=== PATIENT | male | born 1955 | race Two or more races ===

== ENCOUNTER → 2020-05-08 | Outpatient (REF) | payer BC ==
[~2020-05-08] MED LIST: CIPR-249 PO; EX-L15TA PO; FLAG500T PO
[2020-05-08 18:18] LABS: APPEARANCE, URINE CLEAR (CLEAR); BACTERIA, URINE AUTO NEGATIVE (NEGATIVE); BILIRUBIN, URINE AUTO NEGATIVE (NEGATIVE); BLOOD, URINE BLOOD 2+ (NEGATIVE); COLOR, URINE YELLOW (YELLOW); GLUCOSE, URINE (UA) AUTO NEGATIVE (NEGATIVE); KETONE, URINE AUTO NEGATIVE (NEGATIVE); LEUKOCYTE ESTERASE, URINE AUTO NEGATIVE (NEGATIVE); MUCUS, URINE SMALL (NEGATIVE); NITRITE, URINE AUTO NEGATIVE (NEGATIVE); PROTEIN, URINE AUTO 1+ mg/dL (NEGATIVE); RBC, URINE AUTO 44 /HPF (0-3); SQUAMOUS EPITHELIAL CELL UR AU 0 /HPF (0-6); UROBILINOGEN, URINE AUTO 0.2 mg/dL (0.0-2.0); WBC, URINE AUTO 6 /HPF (0-3)
== END ==
LOC: M SMT 16:52
PROVIDERS: ATTEND Nurse Practitioner Women's Health
DX: R31.0 Gross hematuria (principal)

== ENCOUNTER → 2020-05-22 | Outpatient (CLI) | payer BC ==
[~2020-05-22] MED LIST changes: +ISOVUE-370 76% 100ML VIAL As Ordered ONE
--- NOTE | 2020-05-22 10:56 | REP ---
INDICATION: GROSS HEMATURIA. COMPARISON: 06/21/2017 TECHNIQUE: Axial precontrast, contrast-enhanced and delayed images from the lung bases to the pubic symphysis using 100 cc Isovue 370 intravenous contrast material. Coronal and sagittal reformations obtained along with recreated CT urogram. This CT examination was performed using the following dose reduction techniques: Automated exposure control, adjustment of mA and/or kv according to the patient's size, and the use of iterative reconstruction technique. FINDINGS: There is a 3.5 cm enhancing mass along the left lateral bladder wall. No adjacent inflammatory stranding or pelvic adenopathy is appreciated. Kidneys demonstrate mild chronic symmetric perinephric stranding without hydroureteronephrosis, nephroureterolithiasis, cystic or mass lesion. Liver, spleen, pancreas, and bilateral adrenal glands are normal. Evidence for prior cholecystectomy along with small fat containing periumbilical hernia and adjacent granulation tissue likely related to prior laparoscopic procedure. The enteric system including stomach, small, and residual large bowel appears normal. No evidence for obstruction or acute inflammatory process. Normal terminal ileum and appendix are identified in the right lower quadrant. Evidence for prior partial sigmoid resection. Pelvis demonstrates bladder mass as described above along with relatively age-appropriate prostate/seminal vesicles. No ascites. No free air. No intraperitoneal or retroperitoneal adenopathy. Abdominal aorta and vasculature appear normal. Musculoskeletal structures are intact and without acute osseous abnormality. Incidental calcified granuloma at the right lung base again noted. IMPRESSION: 1. 3.5 cm enhancing bladder mass requires further investigation and urologic consultation. Normal appearance of the bilateral kidneys and ureters. No pelvic inflammatory stranding, pelvic or retroperitoneal adenopathy appreciated. <Electronically signed by Gilles Feldman > 05/22/20 [id number]
== END ==
LOC: M RAD 09:39
PROVIDERS: ATTEND Nurse Practitioner Women's Health
DX: R31.0 Gross hematuria (principal)
CPT/HCPCS: 74178; Q9967

== ENCOUNTER → 2020-06-07 | Outpatient (CLI) | payer BC ==
[~2020-06-07] MED LIST changes: +AMLO2.5T3; +BYST2.5T2; -ISOVUE-370 76% 100ML VIAL As Ordered ONE
== END ==
LOC: M LABSMTC 11:07
PROVIDERS: ATTEND Anesthesiology
DX: Z01.812 Encounter for preprocedural laboratory examination (principal)

== ENCOUNTER 2020-06-12 10:47 | Day surgery (SDC) | payer BC ==
[~2020-06-12] VITALS: Ht 180.3 cm; Wt 136.5 kg
[~2020-06-12 10:47] MED LIST changes: +ACETAMINOPHEN 1000MG 100ML IV BTL (OFIRMEV) (J0131 PER 10MG) As Ordered ONE; -AMLO2.5T3; +AMLO2.5T3 PO; +LIDOCAINE 2% 100MG/5ML SDV (FOR ANES.) As Ordered ONE; +LR 1,000 ML IV SCH; +MIDAZOLAM INJ 2MG/2ML VIAL (J2250 PER 1MG) As Ordered ONE; +ONDANSETRON 4MG/2ML VIAL As Ordered ONE; +ROCURONIUM BROMIDE 50 MG/5 ML VIAL As Ordered ONE; +SUGAMMADEX SODIUM 500 MG/5 ML VIAL (BRIDION) As Ordered ONE; +ceFAZolin SOD 2 GM in IV 1 EA IV ONE; +dexameTHASONE 4 MG/ML 1ML VIAL (J1100 PER 1MG) As Ordered ONE; +fentaNYL 100 MCG/2 ML INJECTION (J3010) As Ordered ONE; +propofoL 200 MG/20 ML VIAL As Ordered ONE
[2020-06-12] MEDS ORDERED: KETOROLAC 60MG 2ML VIAL As Ordered ONE (12:56)
[2020-06-12] MEDS ORDERED: fentaNYL 100 MCG/2 ML INJECTION (J3010) As Ordered ONE (13:39)
[2020-06-12] MEDS ORDERED: LABETALOL 100MG/20ML VIAL As Ordered ONE (13:44)
[2020-06-12] MEDS ORDERED: hydrALAZINE 20MG/ML 1ML VIAL (J0360 PER 20MG) As Ordered ONE (14:03)
[2020-06-12] MEDS ORDERED: ACETAMINOPHEN TAB 650MG DOSE (2X325MG) PO PRN (14:45)
[2020-06-12] MEDS ORDERED: LR 1,000 ML IV SCH (14:45)
[2020-06-12] MEDS ORDERED: HYDROMORPHONE HCL 0.5 MG/ 0.5 ML SYRINGE (J1170 PER 1) IV PRN (14:45)
[2020-06-12] MEDS ORDERED: ONDANSETRON 4MG/2ML VIAL IV PRN (14:45)
[2020-06-12] MEDS ORDERED: fentaNYL 100 MCG/2 ML INJECTION (J3010) IV PRN (14:45)
[2020-06-12] MEDS ORDERED: oxyCODONE 5MG TAB PO PRN (14:45)
[2020-06-12 15:00] VITALS: BP 164/81
[2020-06-12] MEDS ORDERED: oxyBUTYnin 5 MG TAB PO ONE (16:10)
--- NOTE | 2020-06-12 21:28 | RO ---
OPERATIVE NOTE DATE OF OPERATION: 06/12/2020 PREOPERATIVE DIAGNOSIS: Bladder tumor. POSTOPERATIVE DIAGNOSIS: Bladder tumor. PROCEDURE: Cystoscopy, transurethral resection of bladder tumor (greater than 5 cm), examination under anesthesia. SURGEON: Asim Angel M.D. CAR PRE COOLER: None. ANESTHESIA: General. OPERATIVE INDICATION: This 64-year-old male was found to have a very large bladder tumor in the upper posterior lateral wall on recent cystoscopy. He was brought to the operating room today for treatment. DESCRIPTION OF PROCEDURE: The patient was brought to the operating room and general anesthesia induced. Prophylactic antibiotics were infused. He was placed in the dorsal lithotomy position and then a bimanual digital rectal examination under anesthesia was performed. Of note, he had a very small prostate without nodules. There were no palpable bladder masses. The bladder was freely mobile. At this point, the patient was prepped and draped in the usual sterile fashion. At this point, a resectoscope was inserted into the urethral meatus and advanced into the bladder using the visual obturator. The bladder was thoroughly examined. Of note, the only abnormality seen was an approximately 5.5 cm tumor on the posterior wall close to the dome. Both ureteral orifices were orthotopic and efflux clear urine. At this point, I utilized a Bipolar Loop to resect the tumor completely. The top of the tumor was resected and the specimen was sent as a bladder tumor. I then resected the base of the tumor and sent it off as a resection of bladder tumor base. All the specimens were removed from the bladder. I then cauterized the base of the resection until there was excellent hemostasis. Once satisfied with hemostasis, the resectoscope was removed and an 18 [place] Childers catheter was inserted into the bladder. The balloon was then filled with sterile water and then the catheter was connected to gravity drainage. This marked the conclusion of the procedure. The patient was taken from the dorsal lithotomy position, awaken from anesthesia and transferred to the recovery room in stable condition. ESTIMATED BLOOD LOSS: 15 ml COMPLICATIONS: None. SPECIMENS: Bladder tumor, resection of bladder tumor base. PLAN: The patient will follow up in the urology clinic in approximately one week for catheter removal and to discuss pathology results. SAMIRA
== END 2020-06-12 16:45 | disposition home or self-care (01) ==
LOC: M SDC 10:47
PROVIDERS: ATTEND Urology
DX: C67.4 Malignant neoplasm of posterior wall of bladder (principal); I10 Essential (primary) hypertension; M19.90 Unspecified osteoarthritis, unspecified site; R31.9 Hematuria, unspecified; R35.0 Frequency of micturition; Z87.891 Personal history of nicotine dependence; Z91.048 Other nonmedicinal substance allergy status; Z79.899 Other long term (current) drug therapy; Z85.038 Personal history of other malignant neoplasm of large intestine
CPT/HCPCS: 52240; 88305; 88341; 88342; C1769; J0131; J0360; J0690; J1100; J1885; J2250; J2405; J3010

== ENCOUNTER → 2021-01-19 | Outpatient (REF) | payer BC, MEDICARE ==
[~2021-01-19] MED LIST changes: -ACETAMINOPHEN 1000MG 100ML IV BTL (OFIRMEV) (J0131 PER 10MG) As Ordered ONE; -LIDOCAINE 2% 100MG/5ML SDV (FOR ANES.) As Ordered ONE; -LR 1,000 ML IV SCH; -MIDAZOLAM INJ 2MG/2ML VIAL (J2250 PER 1MG) As Ordered ONE; -ONDANSETRON 4MG/2ML VIAL As Ordered ONE; -ROCURONIUM BROMIDE 50 MG/5 ML VIAL As Ordered ONE; -SUGAMMADEX SODIUM 500 MG/5 ML VIAL (BRIDION) As Ordered ONE; -ceFAZolin SOD 2 GM in IV 1 EA IV ONE; -dexameTHASONE 4 MG/ML 1ML VIAL (J1100 PER 1MG) As Ordered ONE; -fentaNYL 100 MCG/2 ML INJECTION (J3010) As Ordered ONE; -propofoL 200 MG/20 ML VIAL As Ordered ONE
== END ==
LOC: M SMT 19:14
PROVIDERS: ATTEND Urology
DX: C67.9 Malignant neoplasm of bladder, unspecified (principal)

== ENCOUNTER → 2021-05-04 | Outpatient (REF) | payer MEDICARE, BC | LOC: M SMT 13:10 | PROVIDERS: ATTEND Urology | DX: C67.9 Malignant neoplasm of bladder, unspecified (principal) ==

== ENCOUNTER → 2021-08-14 | Outpatient (REF) | payer MEDICARE, BC | LOC: M SMT 17:07 | PROVIDERS: ATTEND Urology | DX: C67.9 Malignant neoplasm of bladder, unspecified (principal) ==

== ENCOUNTER → 2022-02-22 | Outpatient (CLI) | payer MEDICARE, BC | LOC: M PLARAD 08:11 | PROVIDERS: ATTEND Physician Assistant Medical | DX: R91.1 Solitary pulmonary nodule (principal) | CPT/HCPCS: 78816; A9552 ==

== ENCOUNTER → 2022-02-23 | Outpatient (REF) | payer MEDICARE, BC | LOC: M SMT 17:23 | PROVIDERS: ATTEND Urology | DX: C67.9 Malignant neoplasm of bladder, unspecified (principal) ==

== ENCOUNTER → 2022-05-02 | Outpatient (CLI) | payer MEDICARE, BC ==
[~2022-05-02] MED LIST changes: -BYST2.5T2; +BYST2.5T2 PO
== END ==
LOC: M LABSMTC 09:53
PROVIDERS: ATTEND Anesthesiology
DX: Z01.812 Encounter for preprocedural laboratory examination (principal)

== ENCOUNTER 2022-05-05 09:08 | Day surgery (SDC) | payer MEDICARE, BC ==
[~2022-05-05] VITALS: Ht 177.8 cm; Wt 136.1 kg
[~2022-05-05 09:08] MED LIST changes: +ALBUTEROL SULFATE 2.5MG/0.5ML INH NEB SOLN INH ONE; +CETACAINE SPRAY 5GM As Ordered ONE; +EPINEPHrine 1MG/10ML SYRINGE 1.5IN As Ordered ONE; +LIDOCAINE PRES-FREE 2% 10ML AMP INH ONE; +THROMBIN 5,000 UNITS VIAL As Ordered ONE
[2022-05-05] MEDS ORDERED: LR 1,000 ML IV SCH ×2 (09:30→12:00)
[2022-05-05] MEDS ORDERED: MIDAZOLAM INJ 2MG/2ML VIAL As Ordered ONE (10:25)
[2022-05-05] MEDS ORDERED: fentaNYL 100 MCG/2 ML INJECTION As Ordered ONE (10:25)
[2022-05-05] MEDS ORDERED: KETOROLAC 60MG 2ML VIAL As Ordered ONE (10:25)
[2022-05-05] MEDS ORDERED: ONDANSETRON 4MG 2ML VIAL As Ordered ONE (10:25)
[2022-05-05] MEDS ORDERED: LIDOCAINE 2% 100MG/5ML SDV (FOR ANES.) As Ordered ONE (10:26)
[2022-05-05] MEDS ORDERED: ROCURONIUM BROMIDE 50MG/5ML VIAL As Ordered ONE (10:26)
[2022-05-05] MEDS ORDERED: propofoL 200 MG/20 ML VIAL As Ordered ONE (10:26)
[2022-05-05] MEDS ORDERED: SUGAMMADEX SODIUM 500 MG/5 ML VIAL (BRIDION) As Ordered ONE (10:26)
[2022-05-05] MEDS ORDERED: ACETAMINOPHEN 1000MG 100ML IV BAG As Ordered ONE (10:26)
[2022-05-05] MEDS ORDERED: oxyCODONE 5MG TAB PO PRN (12:00)
[2022-05-05] MEDS ORDERED: fentaNYL 100 MCG/2 ML INJECTION IV PRN (12:00)
[2022-05-05] MEDS ORDERED: ONDANSETRON 4MG 2ML VIAL IV PRN (12:00)
[2022-05-05] MEDS ORDERED: HYDROMORPHONE HCL 0.5 MG/ 0.5 ML SYRINGE IV PRN (12:00)
[2022-05-05 13:10] VITALS: BP 130/64
== END 2022-05-05 13:34 | disposition home or self-care (01) ==
LOC: M SDC 09:08
PROVIDERS: ATTEND Internal Medicine Critical Care Medicine
DX: R59.0 Localized enlarged lymph nodes (principal); I10 Essential (primary) hypertension; M19.90 Unspecified osteoarthritis, unspecified site; F17.210 Nicotine dependence, cigarettes, uncomplicated; Z79.899 Other long term (current) drug therapy; Z91.048 Other nonmedicinal substance allergy status; Z85.038 Personal history of other malignant neoplasm of large intestine
CPT/HCPCS: 31629; 31653; 88173; 88305; J0131; J1100; J1885; J2250; J2405; J3010

== ENCOUNTER → 2022-09-27 | Outpatient (REF) | payer MEDICARE, BC ==
[~2022-09-27] MED LIST changes: -ALBUTEROL SULFATE 2.5MG/0.5ML INH NEB SOLN INH ONE; -CETACAINE SPRAY 5GM As Ordered ONE; -EPINEPHrine 1MG/10ML SYRINGE 1.5IN As Ordered ONE; -LIDOCAINE PRES-FREE 2% 10ML AMP INH ONE; -THROMBIN 5,000 UNITS VIAL As Ordered ONE
== END ==
LOC: M SMT 13:35
PROVIDERS: ATTEND Urology
DX: C67.9 Malignant neoplasm of bladder, unspecified (principal)

== ENCOUNTER → 2022-10-08 | Outpatient (CLI) | payer MEDICARE, BC | LOC: M RAD 09:25 | PROVIDERS: ATTEND Internal Medicine Critical Care Medicine | DX: R91.1 Solitary pulmonary nodule (principal); Z95.1 Presence of aortocoronary bypass graft ==

== ENCOUNTER → 2022-11-10 | Outpatient (CLI) | payer MEDICARE, BC ==
[~2022-11-10] MED LIST changes: +ALBU8.5H; +LIDOCAINE W/EPINEPHRINE 1% 20ML VIAL As Ordered ONE; +MIDAZOLAM INJ 2MG/2ML VIAL As Ordered ONE; +ceFAZolin 2 GM/D5W 50 ML IV BAG As Ordered ONE; +fentaNYL 100 MCG/2 ML INJECTION As Ordered ONE
[2022-11-10 12:12] LABS: HEMATOCRIT 47.8 % (42.0-52.0); HEMOGLOBIN 15.7 g/dl (13.5-17.5); MEAN CORPUSCULAR HEMOGLOBIN 31.2 pg (27.0-33.0); MEAN CORPUSCULAR HGB CONC 32.8 g/dl (32.0-36.5); PLATELET COUNT, AUTOMATED 188 10^3/uL (150-450); RED BLOOD COUNT 5.03 10^6/uL (4.30-6.10); WHITE BLOOD COUNT 7.9 10^3/uL (4.0-10.0)
[2022-11-10 14:30] VITALS: BP 151/70; O2SAT 100
== END ==
LOC: M IRPRO 09:43
PROVIDERS: ATTEND Specialist
DX: C18.9 Malignant neoplasm of colon, unspecified (principal); C78.00 Secondary malignant neoplasm of unspecified lung
CPT/HCPCS: 36561; 85027; 99152; 99153; J0690; J2250; J3010

== ENCOUNTER → 2022-11-29 | Outpatient (CLI) | payer MEDICARE, BC ==
[~2022-11-29] MED LIST changes: -LIDOCAINE W/EPINEPHRINE 1% 20ML VIAL As Ordered ONE; -MIDAZOLAM INJ 2MG/2ML VIAL As Ordered ONE; -ceFAZolin 2 GM/D5W 50 ML IV BAG As Ordered ONE; -fentaNYL 100 MCG/2 ML INJECTION As Ordered ONE
== END ==
LOC: M PLARAD 10:07
PROVIDERS: ATTEND Specialist
DX: C18.8 Malignant neoplasm of overlapping sites of colon (principal)
CPT/HCPCS: 78815; A9552

== ENCOUNTER → 2023-02-28 | Outpatient (CLI) | payer MEDICARE, BC ==
[~2023-02-28] MED LIST changes: +AMLO1TAB24 PO; +FLUC150T9 PO; +ONDA8TAB8 PO; +PROC10TA5 PO
== END ==
LOC: M PLARAD 13:29
PROVIDERS: ATTEND Internal Medicine Hematology & Oncology
DX: C18.8 Malignant neoplasm of overlapping sites of colon (principal)
CPT/HCPCS: 78815; A9552

== ENCOUNTER → 2023-06-08 | Outpatient (CLI) | payer MEDICARE, BC ==
[~2023-06-08] MED LIST changes: -ALBU8.5H; +ALBU8.5H INH; +GASTROGRAFIN SOLUTION 30ML As Ordered ONE; +ISOVUE-370 76% 100ML VIAL As Ordered ONE
== END ==
LOC: M RAD 10:56
PROVIDERS: ATTEND Nurse Practitioner
DX: C18.9 Malignant neoplasm of colon, unspecified (principal)
CPT/HCPCS: 71260; 74177; Q9963; Q9967

== ENCOUNTER → 2023-08-30 | Outpatient (CLI) | payer MEDICARE, BC ==
[~2023-08-30] MED LIST changes: -GASTROGRAFIN SOLUTION 30ML As Ordered ONE; +GASTROGRAFIN SOLUTION 30ML ONE; -ISOVUE-370 76% 100ML VIAL As Ordered ONE; +ISOVUE-370 76% 100ML VIAL ONE; +ONDA-284 PO; -ONDA8TAB8 PO
== END ==
LOC: M PLAIMG 12:27
PROVIDERS: ATTEND Specialist
DX: C18.9 Malignant neoplasm of colon, unspecified (principal)
CPT/HCPCS: 71260; 74177; Q9963; Q9967

== ENCOUNTER → 2023-10-10 | Outpatient (REF) | payer MEDICARE, BC ==
[~2023-10-10] MED LIST changes: -GASTROGRAFIN SOLUTION 30ML ONE; -ISOVUE-370 76% 100ML VIAL ONE
== END ==
LOC: M SMT 13:22
PROVIDERS: ATTEND Urology
DX: C67.9 Malignant neoplasm of bladder, unspecified (principal)

== ENCOUNTER → 2023-12-09 | Outpatient (CLI) | payer MEDICARE, BC ==
[~2023-12-09] MED LIST changes: +DOXY-440 PO; +GASTROGRAFIN SOLUTION 30ML As Ordered ONE; +ISOVUE-370 76% 100ML VIAL As Ordered ONE
== END ==
LOC: M RAD 11:24
PROVIDERS: ATTEND Specialist
DX: C18.9 Malignant neoplasm of colon, unspecified (principal)
CPT/HCPCS: 71260; 74177; Q9963; Q9967

== ENCOUNTER → 2024-01-08 | Outpatient (REF) | payer MEDICARE, BC ==
[~2024-01-08] MED LIST changes: -GASTROGRAFIN SOLUTION 30ML As Ordered ONE; -ISOVUE-370 76% 100ML VIAL As Ordered ONE
== END ==
LOC: M LAB REF 11:53
PROVIDERS: ATTEND Internal Medicine Critical Care Medicine
DX: J44.9 Chronic obstructive pulmonary disease, unspecified (principal)

== ENCOUNTER → 2024-04-23 | Outpatient (CLI) | payer MEDICARE, BC ==
[~2024-04-23] MED LIST changes: +FLUC100T3 PO; +HYDR-4571 PO; +IPRA3SP; +ISOVUE-370 76% 100ML VIAL As Ordered ONE; +KETO2CR; +NYST1POW3
== END ==
LOC: M RAD 08:21
PROVIDERS: ATTEND Nurse Practitioner Women's Health
DX: C18.9 Malignant neoplasm of colon, unspecified (principal)
CPT/HCPCS: 71260; 74177; Q9967

== ENCOUNTER → 2024-09-27 | Outpatient (REF) | payer MEDICARE, BC ==
[~2024-09-27] MED LIST changes: +BETA0.0543 TOP; -ISOVUE-370 76% 100ML VIAL As Ordered ONE; +TRIA0.022 TOP
== END ==
LOC: M SFHCDERM 16:45
PROVIDERS: ATTEND Nurse Practitioner Family
DX: R21 Rash and other nonspecific skin eruption (principal)

== ENCOUNTER → 2024-10-03 | Outpatient (CLI) | payer MEDICARE, BC ==
[~2024-10-03] MED LIST changes: +ISOVUE-370 76% 100 ML VIAL As Ordered ONE
== END ==
LOC: M RAD 08:49
DX: C18.9 Malignant neoplasm of colon, unspecified (principal)
CPT/HCPCS: 71260; 74177; Q9967

== ENCOUNTER → 2024-10-15 | Outpatient (REF) | payer MEDICARE, BC ==
[~2024-10-15] MED LIST changes: -ISOVUE-370 76% 100 ML VIAL As Ordered ONE
== END ==
LOC: M SMT 12:42
PROVIDERS: ATTEND Urology
DX: C67.9 Malignant neoplasm of bladder, unspecified (principal)

== ENCOUNTER 2024-12-03 07:22 | Day surgery (SDC) | payer MEDICARE, BC ==
[~2024-12-03] VITALS: Ht 177.8 cm; Wt 124.2 kg
[~2024-12-03 07:22] MED LIST changes: +CYCLOPENTOLATE 1% OPHTH SOLN 2 ML BTL OS SCH; +FLURBIPROFEN 0.03% OPHTH SOLN 2.5 ML OS SCH; +KETO120S5; +LR 1,000 ML IV SCH; +MIDAZOLAM INJ 2 MG/2 ML VIAL As Ordered ONE; +PHENYLEPHRINE 2.5% OPHTH SOL 2ML OS SCH; +TETRACAINE 0.5% OPHTH SOLN 4ML OS SCH
[2024-12-03] MEDS: CYCLOPENTOLATE 1% OPHTH SOLN 2 ML BTL OS SCH (09:01)
[2024-12-03] MEDS: PHENYLEPHRINE 2.5% OPHTH SOL 2ML OS SCH (09:01)
[2024-12-03] MEDS: FLURBIPROFEN 0.03% OPHTH SOLN 2.5 ML OS SCH (09:01)
[2024-12-03] MEDS: TETRACAINE 0.5% OPHTH SOLN 4ML OS SCH (09:02)
[2024-12-03] MEDS: LIDOCAINE 1% SDV 5 ML VIAL As Ordered ONE (09:16)
[2024-12-03] MEDS: CEFUROXIME 1 MG/0.1 ML INTRACAMERAL INJ As Ordered ONE (09:27)
[2024-12-03 09:35] VITALS: BP 143/65; TEMP 97.1; O2SAT 98
== END 2024-12-03 10:40 | disposition home or self-care (01) ==
LOC: M SDC 07:22
PROVIDERS: ATTEND Ophthalmology
DX: H25.12 Age-related nuclear cataract, left eye (principal); I10 Essential (primary) hypertension; C34.90 Malignant neoplasm of unspecified part of unspecified bronchus or lung; F17.210 Nicotine dependence, cigarettes, uncomplicated; Z85.038 Personal history of other malignant neoplasm of large intestine; Z90.49 Acquired absence of other specified parts of digestive tract; Z92.21 Personal history of antineoplastic chemotherapy; Z79.899 Other long term (current) drug therapy; Z91.048 Other nonmedicinal substance allergy status
CPT/HCPCS: 66984; J0697; J2250; J3010; V2632

== ENCOUNTER → 2024-12-31 | Outpatient (CLI) | payer MEDICARE, BC ==
[~2024-12-31] MED LIST changes: -CYCLOPENTOLATE 1% OPHTH SOLN 2 ML BTL OS SCH; -FLURBIPROFEN 0.03% OPHTH SOLN 2.5 ML OS SCH; +HEPARIN LOCK FLUSH 100 UNITS/ML 3 ML SYRINGE As Ordered ONE; +ISOVUE-370 76% 100 ML VIAL As Ordered ONE; -LR 1,000 ML IV SCH; -MIDAZOLAM INJ 2 MG/2 ML VIAL As Ordered ONE; -PHENYLEPHRINE 2.5% OPHTH SOL 2ML OS SCH; -TETRACAINE 0.5% OPHTH SOLN 4ML OS SCH
== END ==
LOC: M RAD 09:35
DX: C18.9 Malignant neoplasm of colon, unspecified (principal); J84.10 Pulmonary fibrosis, unspecified; R91.8 Other nonspecific abnormal finding of lung field
CPT/HCPCS: 71260; 74177; J1642; Q9967

== ENCOUNTER 2025-02-04 07:21 | Day surgery (SDC) | payer MEDICARE, BC ==
[~2025-02-04] VITALS: Ht 177.8 cm; Wt 120.3 kg
[~2025-02-04 07:21] MED LIST changes: +ALBU8.5H; -HEPARIN LOCK FLUSH 100 UNITS/ML 3 ML SYRINGE As Ordered ONE; -ISOVUE-370 76% 100 ML VIAL As Ordered ONE; +LR 1,000 ML IV SCH; +MIDAZOLAM INJ 2 MG/2 ML VIAL As Ordered ONE
[2025-02-04] MEDS: CYCLOPENTOLATE 1% OPHTH SOLN 2 ML BTL OD SCH (08:35)
[2025-02-04] MEDS: PHENYLEPHRINE 2.5% OPHTH SOL 2ML OD SCH (08:35)
[2025-02-04] MEDS: FLURBIPROFEN 0.03% OPHTH SOLN 2.5 ML OD SCH (08:36)
[2025-02-04] MEDS: TETRACAINE 0.5% OPHTH SOLN 4ML OD SCH (08:36)
[2025-02-04] MEDS: CEFUROXIME 1 MG/0.1 ML INTRACAMERAL INJ As Ordered ONE (10:21)
[2025-02-04] MEDS: LIDOCAINE 1% SDV 5 ML VIAL As Ordered ONE (10:21)
[2025-02-04 10:40] VITALS: BP 132/66; TEMP 96.9; O2SAT 100
== END 2025-02-04 10:58 | disposition home or self-care (01) ==
LOC: M SDC 07:21
PROVIDERS: ATTEND Ophthalmology
DX: H25.11 Age-related nuclear cataract, right eye (principal); I10 Essential (primary) hypertension; C78.01 Secondary malignant neoplasm of right lung; F17.210 Nicotine dependence, cigarettes, uncomplicated; Z79.899 Other long term (current) drug therapy; Z85.038 Personal history of other malignant neoplasm of large intestine; Z85.51 Personal history of malignant neoplasm of bladder; Z92.21 Personal history of antineoplastic chemotherapy; Z90.49 Acquired absence of other specified parts of digestive tract; Z98.42 Cataract extraction status, left eye
CPT/HCPCS: 66984; J0697; J2250; J3010; V2632